=== PATIENT | male | born 2000 | race African-American/Black ===

== ENCOUNTER 2022-11-29 11:22 | Observation (INO) | payer OTHER, SELFPAY ==
--- OUTSIDE RECORDS SUMMARY | 2022-11-29 11:26 | XMS REPORT | Continuity of Care Document ---
:2000 Author Organization [facility] t Address [address] [place] [address]. [address] [place] [address] Care Team Providers Name Role Phone PCP, PATIENT DOES NOT HAVE A Primary Care Physician Unavailhernando Hartman MD, Not In System Attending Clinician Unavailable WILEY LOPEZ Attending Clinician Unavailable Wiley Lopez MD Attending Clinician Milton Romero Attending Clinician MILTON DUPREE Attending Clinician Unavailable TAMIE CAMACHO Attending Clinician Unavailable JOIE GUTIERREZ Attending Clinician Unavailable COSTA SALAS Attending Clinician Unavailable WILEY LOPEZ Admitting Clinician Unavailable MILTON DUPREE Admitting Clinician Unavailable COSTA SALAS Admitting Clinician Unavailable Payers Payer Name Policy Type Policy Number Effective Date Expiration Date S adrianaramona [facility] [id number] 2021 00:00:00 MEDICAID PENDING PENDING 2020 00:00:00 Problems Condition Condition Condition Status Onset Resolution Last Treating Co mments Source Name Details Category Date Date Treatment Clinician Date No known No known Disease Unive rs active active ity of problems problems [facility] Allergies, Adverse Reactions, Alerts Allergy Allergy Status Severity Reaction(s) Onset Inactive Treating Comm ents Source Name Type Date Date Clinician NO KNOWN Drug Active Univers ALLERGIE Class ity of [facility] Social History Social Habit Start Date Stop Date Quantity Comments Source Exposure to Not sure [facility] [place] SARS-CoV-2 (event) Medica l Branch Gender identity [facility] Sexual orientation [facility] History of Social 2020-07-08 2020-07-08 [facility] function 00:00:00 00:00:00 Sex Assigned At [birth year] Met [facility] 00:00:00 00:00:00 Smoking Status Start Date Stop Date Source Tobacco smoking consumption unknown [facility] Medications Ordered Filled Start Stop Current Ordering Indication Dosage Frequency Signature Comments Components Source Medication Medication Date Date Medication? Clinician (SIG) Name Name oseltamivir Yes [id number] 75mg Take 1 Univers (TAMIFLU) 3-22 capsule by ity of 75 mg 00:00: mouth 2 [place] capsule 00 (two) Medical times Branch daily. ibuprofen Yes [id number] 800mg Take 1 Univers 800 mg 3-22 tablet by ity of tablet 00:00: mouth [place] 00 every 8 Medical (eight) Branch hours as needed for Pain (scale 4-6) or Temp > 38.5 C. ondansetron 2020- No 4mg 4 mg, Slow Univers (ZOFRAN 8 08-30 IV Push, ity of (PF)) 06:15: 05:11 ONCE, 1 [place] injection 4 00 :00 dose, Mon Med ical mg 11/17/20 at Branch 0115, KENYETTA NaCl 0.9% 2020- No 1000mL at 999 Uni vers (NS) bolus 8 08-30 mL/hr, ity of infusion 06:15: 06:00 1,000 mL, Darius as 1,000 mL 00 :00 IV Medical Piggyback, Branch ONCE, 1 dose, 11/17/20 at 0115, STAT methylPREDN Yes [id number] Take by Univers ISolone 2-20 mouth ity of (MEDROL, 00:00: SEE-INSTRU Darius as RICARDO,) 4 mg 00 CTIONS. Medica l tablets follow Branch package directions naproxen 0 Yes [id number] 550mg Take 1 U nivers sodium 2-20 tablet by ity of (ANAPROX 00:00: mouth 2 [place] DS) 550 mg 00 (two) Medical tablet times Branch daily with meals. methylPREDN 2020-0 Yes [id number] Take by Univers ISolone 2-20 mouth ity of (MEDROL, 00:00: SEE-INSTRU Darius as RICARDO,) 4 mg 00 CTIONS. Medica l tablets follow Branch package directions naproxen 2019-0 Yes [id number] 550mg Take 1 U nivers sodium 2-20 tablet by ity of (ANAPROX 00:00: mouth 2 [place] DS) 550 mg 00 (two) Medical tablet times Branch daily with meals. Vital Signs Vital Name Observation Time Observation Value Comments Source Body temperature 2021-06-09 07:54:00 37.83 Augustina [facility] Respiratory rate 2021-06-09 07:00:00 22 /min [facility] Oxygen saturation in 2021-06-09 07:00:00 98 /min University of Arterial blood by [facility] Pulse oximetry Jeddo Systolic blood 2021-06-09 07:00:00 134 mm[Hg] Univer sity [facility] Diastolic blood 2021-06-09 07:00:00 44 mm[facility]Hg] [facility] 2021-06-09 07:00:00 81 /min [facility] Body height 2021-06-09 04:53:00 188 cm [facility] Body weight 2021-06-09 04:53:00 122.471 kg [facility] BMI 2021-06-09 04:53:00 34.67 kg/m2 [facility] Systolic blood 2020-11-17 07:30:00 118 mm[Hg] Univer sity [facility] Diastolic blood 2020-11-17 07:30:00 66 mm[Hg] [facility] 2020-11-17 07:30:00 73 /min [facility] Respiratory rate 2020-11-17 07:30:00 18 /min [facility] Oxygen saturation in 2020-11-17 07:30:00 99 /min [place] of Arterial blood by [facility] Pulse oximetry Branch Body weight 2020-11-17 04:47:00 115.667 kg [facility] BMI 2020-11-17 04:47:00 32.74 kg/m2 [facility] Procedures Procedure Date / Time Performing Clinician Source Performed TROPONIN I 2021-06-09 06:51:00 Wiley Lopez [facility] RAPID INFLUENZA A/B 2021-06-09 06:40:00 Wiley Lopez [facility] COVID-19 (ID NOW RAPID 2021-06-09 06:40:00 Wiley Lopez [facility] TESTING) [facility] XR CHEST 1 VW 2021-06-09 05:17:00 Wiley Lopez [facility] LIPASE 2021-06-09 05:07:00 Wiley Lopez [facility] TROPONIN I 2021-06-09 05:07:00 Wiley Lopez [facility] COMP. METABOLIC PANEL 2021-06-09 05:07:00 Wiley Lopez [facility] ([id number]) [facility] CBC WITH DIFF 2021-06-09 05:07:00 Wiley Lopez [facility] PROTHROMBIN TIME / INR 2021-06-09 05:07:00 Wiley Lopez [facility] ACTIVATED PARTIAL 2021-06-09 05:07:00 Wiley Lopez [facility] THRMPLAS [facility] URINALYSIS 2020-11-17 06:55:00 Milton Dupree [facility] URINE DRUG (IMMUNOASSAY) 2020-11-17 06:55:00 [facility] SCREEN W/O REFLEX XR CHEST 1 VW 2020-11-17 06:08:15 Milton Dupree [facility] POCT GLUCOSE (AUTOMATED) 2020-11-17 05:10:[address] [facility] TROPONIN I 2020-11-17 05:06:00 Milton Dupree [facility] COMP. METABOLIC PANEL 2020-11-17 05:06:00 Milton Dupree [facility] ([id number]) Medical Branch ETHANOL 2020-11-17 05:06:00 Milton Dupree [facility] CBC WITH DIFF 2020-11-17 05:06:00 Milton Dupree [facility] Plan of Care Planned Activity Planned Date Details Comments Source Future Scheduled 2022-11-25 COVID-19 [facility]INE [facility] Test 13:58:54 (#1) [code = COVID-19 VACCINE (#1)] Future Scheduled 2022-11-25 [facility] 13:58:54 screening (procedure) [code = 524032783] Future Scheduled 2022-11-25 INFLUENZA [facility]ACCINE [facility] Test 13:58:54 (#1) [code = INFLUENZA VACCINE (#1)] Encounters Start End Encounter Admission Attending Care Care Encounter Source Date/Time Date/Time Type Type Clinicians Facility Department ID 2022-05-07 2022-05-07 Transcribe Provider, [id number] [facility] 00:00:00 00:00:00 [place] [address].[address] [facility] 3.430.2.7 Hospit a .3.471313 l .8 2021-06-08 2021-06-09 Emergency X [facility] ERT [id number] Univers 23:50:00 [facility]57[facility] 2021-06-08 2021-06-09 Emergency [facility] [id number] Univers 23:50:00 02:57:00 Wiley BOBO 350.1.13.10 ity of [facility] 4.2.7.2.686 [facility] [id number] [address] 2020-11-16 2020-11-17 Emergency [facility] [id number] Univers 23:44:00 03:10:00 Milton Bobo 350.1.13.10 i ty of [place] 4.2.7.2.686 [facility] [id number] [place] [address] Branch 2020-11-16 2020-11-17 Emergency X LEIA, [facility] ERT [id number] Univers 23:44:00 03:10:00 MILTON [facility] 2020-10-17 2020-10-17 Emergency X DOUG [facility] ERT [id number] Univers 03:03:00 03:03:00 TAMIE [facility] 2020-09-19 2020-09-19 Emergency X [facility] ERT [id number] Univers 09:11:00 09:11:00 [facility] 2020-07-07 2020-07-08 Emergency MATT, [facility] 064 [id number] [place] 00:00:00 00:00:00 JOIE Jade [facility] 2019-05-10 2019-05-10 Emergency X SINGER [facility] ERT [id number] Univers 02:56:17 04:02:00 COSTA [facility] Results Test Description Test Time Test Comments Results Result Comments Source RAPID INFLUENZA A/B 2021-06-09 07:42:13 Test Item Value Reference Range Interpretation Comme nts Rapid Influenza A (test code = Positive Negative A 82515-2) Rapid Influenza B (test code = Negative Negative 24124-9) MARVIN (test code = MARVIN) ID NOW Influenza A & B 2 is an automated multiplex assay that utilizes isothermal nucleic acid amplification technology for the differential and qualitative detection of influenza A and influenza B viral nucleic acids. ?ID Now Influenza A & B 2 performance depends on viral RNA load and may not correlate with cell culture performed on the same specimen. ?A positive result is indicative ?of presence of Influenza A and/or B viral RNA. ?A negative (Not Detected) result does not ?preclude influenza virus infection and should not be used as the sole basis for diagnosis, treatment or other patient management decisions. ?In patients with clinical symptoms, negative results should be treated as presumptive negative. ?Invalid: ?Please collect a new specimen for repeat patient testing if clinically indicated. Lab Interpretation (test code = Abnormal 40509-0) [facility] RAPID TESTING[facility]2021-06-09 07:41:58 Test Item Value Reference Range Interpretation Comments SARS-CoV-2 Rapid ID NOW Not Detected Not Detected (test code = 62722-3) MARVIN (test code = MARVIN) ID NOW COVID-19 Assay is an isothermal nucleic acid amplification test intended for the qualitative detection of nucleic acid from SARS-CoV-2 viral RNA in nasopharyngeal (BUSINESS ACCOUNT MANAGER) specimens. It is used under Emergency Use Authorization (EUA) by FDA. The limit of detection (LOD) of the assay is 125 Genome Equivalents/mL. Please note that a new specimen is requested for testing, if clinically indicated, on tests performed past validated specimen stability time. A positive result is indicative of the presence of SARS-CoV-2 RNA. ?Clinical correlation with patient history and other diagnostic information is necessary to determine patient infection status. A negative (Not Detected) result does not preclude SARS-CoV-2 infection. In patients with a high suspicion of SARS-CoV-2 infection, negative results should be treated as presumptive negative and a new specimen should be tested with alternative nucleic acid amplification molecular test. Invalid: Please collect a new specimen for repeat patient testing if clinically indicated. Lab Interpretation Normal (test code = 66202-0) [facility] [id number] 07:11:05 Test Item Value Reference Interpretation Comments Range TROPONIN I (test <0.012 See_Comment [Automated code = 9819112627) message] The system which generated this result transmitted reference range : <=0.034 ng/mL. The reference range was not used to interpret this result as normal/abnormal . MARVIN (test code = Reference (Normal) MARVIN) Range (defined by the 99th percentile reference limit): <= 0.034 ng/mL Note: Cardiac troponin begins to rise 3-4 hours after the onset of ischemia. Repeat in 4-6 hours if the sample was drawn within 3-4 hours of the onset of the symptom and found normal. Diagnosis of myocardial injury is made with acute changes in cTn concentrations with at least one serial sample above the 99th percentile upper reference limit (URL), taken together with the patient's clinical presentation. Biotin has been reported to cause a negative bias, interpret results relative to patient's use of biotin. Lab Interpretation Normal (test code = 77463-6) [facility] [id number] 05:46:35 Test Item Value Reference Interpretation Comments Range TROPONIN I (test <0.012 See_Comment [Automated code = 2379085430) message] The system which generated this result transmitted reference range : <=0.034 ng/mL. The reference range was not used to interpret this result as normal/abnormal . MARVIN (test code = Reference (Normal) MARVIN) Range (defined by the 99th percentile reference limit): <= 0.034 ng/mL Note: Cardiac troponin begins to rise 3-4 hours after the onset of ischemia. Repeat in 4-6 hours if the sample was drawn within 3-4 hours of the onset of the symptom and found normal. Diagnosis of myocardial injury is made with acute changes in cTn concentrations with at least one serial sample above the 99th percentile upper reference limit (URL), taken together with the patient's clinical presentation. Biotin has been reported to cause a negative bias, interpret results relative to patient's use of biotin. Lab Interpretation Normal (test code = 09338-8) [facility]. METABOLIC PANEL (11458)2021-06-09 05:35:57 Test Item Value Reference Range Interpretation Comments NA (test code = 140 mmol/L 135-145 7933447486) K (test code = 4.4 mmol/L 3.5-5.0 6175982610) CL (test code = 102 mmol/L 98-108 8703209027) CO2 TOTAL (test code = 25 mmol/L 23-31 4426606310) AGAP (test code = 2-16 4580505243) BUN (test code = 13 mg/dL 7-23 4383671562) GLUCOSE (test code = 99 mg/dL 70-110 9967080192) CREATININE (test code = 1.12 mg/dL 0.60-1.25 6303073888) TOTAL BILI (test code = 0.6 mg/dL 0.1-1.4 0875048656) CALCIUM (test code = 9.3 mg/dL 8.6-10.6 6843705859) T PROTEIN (test code = 8.4 g/dL 6.3-8.2 H 3746016831) ALBUMIN (test code = 4.9 g/dL 3.5-5.0 3722642680) ALK PHOS (test code = 75 U/L 34-122 0908776715) ALTv (test code = 48 U/L 5-50 1742-6) AST(SGOT) (test code = 49 U/L 13-40 H 0142855333) eGFR (test code = mL/min/1.73m2 4825200665) MARVIN (test code = MARVIN) Association of Glomerular Filtration Rate (GFR) and Staging of Kidney Disease* + --+ --+ ------+| GFR (mL/min/1.73 m2) ?| With Kidney Damage ?| ?Without Kidney Damage+ --------+ --------+ +| ?>90 ?| ?Stage one ?| ? Normal ?+ ---+ ---+ -------+| ?60-89 ?| ?Stage two ?| ? Decreased GFR ? + --+ --+ ------+| ?30-59 ?| ?Stage three ?| ? Stage three ? + --+ --+ ------+| ?15-29 ?| ?Stage four ? | ? Stage four ?+ ---+ ---+ -------+| ?<15 (or dialysis) ? ?| ?Stage five ? | ? Stage five ?+ ---+ ---+ -------+ *Each stage assumes the associated GFR level has been in effect for at least three months. ?Stages 1 to 5, with or without kidney disease, indicate chronic kidney disease. Notes: Determination of stages one and two (with eGFR >59mL/min/1.73 m2) requires estimation of kidney damage for at least three months as defined by structural or functional abnormalities of the kidney, manifested by either:Pathological abnormalities or Markers of kidney damage (including abnormalities in the composition of the blood or urine or abnormalities in imaging tests). Lab Interpretation Abnormal (test code = 77337-3) [facility] [id number] 05:35:16 Test Item Value Reference Range Interpretation Comments LIPASE (test code = 5309152875) 48 U/L 0-220 Lab Interpretation (test code = Normal 42023-6) [facility]22[facility]-22 05:33:35 Test Item Value Reference Range Interpretation Comments APTT Patient (test See_Comment [Automat ed code = 3173-2) message] The system which generated this result transmitted reference range : 23 - 38 Seconds . The reference range was not used to interpr et this result as normal/abnormal . MARVIN (test code = MARVIN) The [facility] patient population mean normal value for aPTT is 30 seconds. Lab Interpretation Normal (test code = 74844-4) [facility] / [id number] 05:31:34 Test Item Value Reference Range Interpretation Comments PROTIME PATIENT (test See_Comment [Auto mated message] code = 5964-2) The system wh ich generated this result transmitted ref erence range: 12.0 - 1 4.7 Seconds. The re ference range was not u sed to interpret this result as normal/abnor mal. INR (test code = 6301-6) Nor mal INR <1.1; Warfarin Therap eutic range 2.0 to 3. 0 or 2.5 to 3.5, dep ending upon the indica tions. Lab Interpretation (test Normal code = 35979-5) [facility] [id number] 05:23:16 Test Item Value Reference Range Interpretation Comments WBC (test code = See_Comment [Automated 0390-2) message] The sy stem which generated this result transmitted reference range : 4.20 - 10.70 10*3/?L. The reference range was not used to interpret this result as normal/abnormal . RBC (test code = See_Comment [Automated 389-8) message] The sy stem which generated this result transmitted reference range : 4.26 - 5.52 10*6/?L. The reference range was not used to interpret this result as normal/abnormal . HGB (test code = 13.9 g/dL 12.2-16.4 718-7) HCT (test code = 42.4 % 38.4-49.3 4544-3) MCV (test code = 86.2 fL 81.7-95.6 787-2) MCH (test code = 28.3 pg 26.1-32.7 785-6) MCHC (test code = 32.8 g/dL 31.2-35.0 786-4) RDW-SD (test code = 44.9 fL 38.5-51.6 08689-6) RDW-CV (test code = 14.3 % 12.1-15.4 788-0) PLT (test code = See_Comment [Automated 777-3) message] The sy stem which generated this result transmitted reference range : 150 - 328 10*3/ ?L. The reference r shirin was not used to interpret this result as normal/abnormal . MPV (test code = 11.7 fL 9.8-13.0 96979-1) NRBC/100 WBC (test See_Comment [Automat ed code = 3815482350) message] The system which generated this result transmitted reference range : 0.0 - 10.0 /100 WBCs. The refer ence range was not u sed to interpret th is result as normal/abnormal . NRBC x10^3 (test code <0.01 See_Comment [Auto mated = 0487134143) message] The s ystem which generated this result transmitted reference range : 10*3/?L. The reference range was not used to interpret this result as normal/abnormal . GRAN MAT (NEUT) % 70.7 % (test code = 770-8) IMM GRAN % (test code 1.60 % = 0826717069) LYMPH % (test code = 15.3 % 736-9) MONO % (test code = 10.6 % 5905-5) EOS % (test code = 1.5 % 713-8) BASO % (test code = 0.3 % 706-2) GRAN MAT x10^3(ANC) 4.35 10*3/uL 1.99-6.95 (test code = 7505742899) IMM GRAN x10^3 (test 0.10 10*3/uL 0.00-0.06 H code = 3455697468) LYMPH x10^3 (test code 0.94 10*3/uL 1.09-3.23 L = 731-0) MONO x10^3 (test code 0.65 10*3/uL 0.36-1.02 = 742-7) EOS x10^3 (test code = 0.09 10*3/uL 0.06-0.53 711-2) BASO x10^3 (test code <0.03 0.01-0.09 = 704-7) Lab Interpretation Abnormal (test code = 80518-2) [facility]IM[facility]ASSA[facility] - COMPREHENSIVE DRUG SCREEN W/O [id number] 07:40:45 Test Item Value Reference Range Interpretation Comments AMPHET (test code = 6269016468) Negative Negative FRANCES U (test code = 7579133271) Negative Negative BENZO U (test code = 3201211343) Negative Negative Cocaine Metabolite (test code = Negative Negative 3473756215) METHADONE (test code = 6177067588) Negative Negative OPIATES (test code = 7190625893) Negative Negative PCP (test code = 9756045622) Negative Negative THC (test code = 4545925537) Negative Negative MARVIN (test code = MARVIN) Lab Interpretation (test code = Normal 41026-5) [facility]2021[facility]08[facility]30 07:28:35 Test Item Value Reference Range Interpretation Comments APPEARANCE (test code = Clear Clear 2716246133) COLOR (test code = Yellow Yellow 2208583372) PH (test code = 4.8-8.0 2255988365) SP GRAVITY (test code = 1.003-1.030 0233871478) GLU U QUAL (test code = Normal Normal 9198922425) BLOOD (test code = Negative Negative 2808840438) KETONES (test code = Negative Negative 2202551889) PROTEIN (test code = Negative Negative 2887-8) UROBILIN (test code = Normal Normal 7890958767) BILIRUBIN (test code = Negative Negative 1604935747) NITRITE (test code = Negative Negative 1792803719) LEUK COLLINS (test code = 25/uL Negative A 2513342206) RBC/HPF (test code = See_Comment [Autom ated message] 3459604505) The system [employer] generated this result transmitted ref erence range: 0 - 3 HP F. The reference range was not used to int erpret this result as normal/abnormal . WBC/HPF (test code = See_Comment H [Autom ated message] 9904170508) The system [employer] generated this result transmitted ref erence range: 0 - 5 HP F. The reference range was not used to int erpret this result as normal/abnormal . BACTERIA (test code = Negative Negative 3929810487) MUCOUS (test code = Slight Negative LPF A 9670339707) Lab Interpretation (test Abnormal code = 01883-9) [facility] [id number] 05:49:31 Test Item Value Reference Range Interpretation Comments TROPONIN I (test code = <0.012 See_Comment [Au tomated message] 3563792445) The system [employer] generated this result transmitted ref erence range: <=0.034 ng/mL. The reference r shirin was not used to interpret this result as normal/abnor mal. MARVIN (test code = MARVIN) Lab Interpretation (test Normal code = 37129-3) [facility] WITH [id number] 05:46:15 Test Item Value Reference Range Interpretation Comments WBC (test code = See_Comment [Automated 2890-2) message] The sy stem which generated this result transmitted reference range : 4.20 - 10.70 10*3/?L. The reference range was not used to interpret this result as normal/abnormal . RBC (test code = See_Comment [Automated 369-8) message] The sy stem which generated this result transmitted reference range : 4.26 - 5.52 10*6/?L. The reference range was not used to interpret this result as normal/abnormal . HGB (test code = 13.4 g/dL 12.2-16.4 718-7) HCT (test code = 40.0 % 38.4-49.3 4544-3) MCV (test code = 84.6 fL 81.7-95.6 787-2) MCH (test code = 28.3 pg 26.1-32.7 785-6) MCHC (test code = 33.5 g/dL 31.2-35.0 786-4) RDW-SD (test code = 40.1 fL 38.5-51.6 59387-2) RDW-CV (test code = 12.9 % 12.1-15.4 788-0) PLT (test code = See_Comment [Automated 777-3) message] The sy stem which generated this result transmitted reference range : 150 - 328 10*3/ ?L. The reference r shirin was not used to interpret this result as normal/abnormal . MPV (test code = 11.5 fL 9.8-13.0 01132-0) NRBC/100 WBC (test See_Comment [Automat ed code = 5206765801) message] The system which generated this result transmitted reference range : 0.0 - 10.0 /100 WBCs. The refer ence range was not u sed to interpret th is result as normal/abnormal . NRBC x10^3 (test code <0.01 See_Comment [Auto mated = 2086731661) message] The s ystem which generated this result transmitted reference range : 10*3/?L. The reference range was not used to interpret this result as normal/abnormal . GRAN MAT (NEUT) % 32.8 % (test code = 770-8) IMM GRAN % (test code 1.10 % = 6998481247) LYMPH % (test code = 57.3 % 736-9) MONO % (test code = 6.4 % 5905-5) EOS % (test code = 1.8 % 713-8) BASO % (test code = 0.6 % 706-2) GRAN MAT x10^3(ANC) 2.89 10*3/uL 1.99-6.95 (test code = 2817096930) IMM GRAN x10^3 (test 0.10 10*3/uL 0.00-0.06 H code = 3978872857) LYMPH x10^3 (test code 5.05 10*3/uL 1.09-3.23 H = 731-0) MONO x10^3 (test code 0.56 10*3/uL 0.36-1.02 = 742-7) EOS x10^3 (test code = 0.16 10*3/uL 0.06-0.53 711-2) BASO x10^3 (test code 0.05 10*3/uL 0.01-0.09 = 704-7) Lab Interpretation Abnormal (test code = 32431-0) [facility]38:52 Test Item Value Reference Range Interpretation Comments ALCOHOL (test code = 7524013579) 144 mg/dL MARVIN (test code = MARVIN) [facility] METABOLIC PANEL (49444)2020-11-17 05:38:32 Test Item Value Reference Range Interpretation Comments NA (test code = 8263449132) 143 mmol/L 135-145 K (test code = 4685289073) 3.3 mmol/L 3.5-5.0 L CL (test code = 1278577613) 108 mmol/L 98-108 CO2 TOTAL (test code = 4842794036) 19 mmol/L 23-31 L AGAP (test code = 1500364565) 2-16 BUN (test code = 7941000687) 11 mg/dL 7-23 GLUCOSE (test code = 8732808413) 125 mg/dL 70-110 H CREATININE (test code = 1.13 mg/dL 0.60-1.25 6723698866) TOTAL BILI (test code = 0.4 mg/dL 0.1-1.2 3043492204) CALCIUM (test code = 3429889495) 9.4 mg/dL 8.6-10.6 T PROTEIN (test code = 0304396884) 9.0 g/dL 6.3-8.2 H ALBUMIN (test code = 9276341650) 5.3 g/dL 3.5-5.0 H ALK PHOS (test code = 2481922338) 77 U/L 34-122 ALTv (test code = 1742-6) 68 U/L 5-50 H AST(SGOT) (test code = 0403241089) 55 U/L 13-40 H eGFR (test code = 7637323891) mL/min/1.73m2 MARVIN (test code = MARVIN) Lab Interpretation (test code = Abnormal 12104-7) [facility]2020-11-17 05:13:21 Test Item Value Reference Range Interpretation Comments POCT GLU (test code = 5296432953) 122 mg/dL 70-110 H Lab Interpretation (test code = Abnormal 09488-7) [facility]"
[2022-11-29 12:23] LABS: Specific Gravity 1.022 (1.005-1.030); Transitional Epithelial <5 /HPF (None Seen); Urine Bacteria <20 /HPF (<20); Urine Bilirubin NEGATIVE (Negative); Urine Blood Negative (Negative); Urine Clarity Turbid (Clear); Urine Color Light-Yellow (Yellow); Urine Glucose NEGATIVE (Negative); Urine Mucus Slight /HPF (None Seen); Urine Protein NEGATIVE (Negative); Urine Urobilinogen Normal (Normal)
[2022-11-29 12:28] LABS: Absolute Lymphocytes (CBC) 1.9 K/uL (0.7-4.9); Hematocrit 40.2 % (39.6-49.0); Lymphocytes % 20.3 % (15.3-44.8); MCV 84.8 fL (80-100); MPV 10.4 fL (7.6-11.3); Platelets 225 thou/uL (152-406); RBC Red Blood Cell Count 4.74 M/uL (4.33-5.43)
[2022-11-29 12:40] LABS: Albumin 4.3 g/dL (3.4-5.0); Bilirubin Total 0.4 mg/dL (0.2-1.0); Potassium 3.6 mEq/L (3.5-5.1); Protein, Total 8.7 g/dL (6.4-8.2)
[2022-11-29] MEDS ORDERED: NA CHLORIDE 0.9% 1,000 ML ONE (13:08)
[2022-11-29] MEDS ORDERED: KETOROLAC 30 MG/ML INJ ONE (13:08)
[2022-11-29] MEDS ORDERED: ONDANSETRON 4 MG/2 ML VIAL ONE ×2 (13:08→15:39)
--- NOTE | 2022-11-29 13:41 | RAD REPORT ---
EXAM DESCRIPTION: CT - Abdomen Pelvis W Contrast - 11/29/2022 1:11 pm CLINICAL HISTORY: ABD PAIN COMPARISON: No comparisons TECHNIQUE: Thin cut axial CT imaging of the abdomen and pelvis was performed following intravenous a dministration of 100 mL Isovue 300. Multiplanar reformats were generated and reviewed. All CT scans are performed using dose optimization technique as appropriate and may include automated exposure control or mA/KV adjustment according to patient size. FINDINGS: No suspicious findings in the lung bases. The liver shows diffuse parenchymal hypoattenuation suggesting steatosis. Spleen, adrenal glands, and pancreas show no suspicious findings. Gallbladder and biliary tree are also without suspicious findi ng. Symmetric renal function is seen with no hydronephrosis or suspicious renal mass. No dilated bowel loops. The appendix courses towards the midline and superiorly, with dilation at the tip measuring up to 1 cm in caliber, with mild adjacent fat stranding. Trace free pelvic fluid. No f ree air, fluid collections, or inflammatory stranding. No hernia, mass or bulky lymphadenopathy. The urinary bladder is without significant finding. No suspicious bony findings. IMPRESSION: Findings suggesting acute appendicitis at the tip of the appendix, as described above. T race free pelvic fluid. Diffuse hepatic parenchymal hypoattenuation, suggesting steatosis. The findings were communicated to Dr. Palm on 11/29/2022 at 13:37 hours.
--- NOTE | 2022-11-29 13:53 | ER ---
Nurse's Notes [facility] Name: Jelani Plaza Age: 22 yrs Sex: Male : 2000 Arrival Date: 11/29/2022 Time: : Bed 10 Private MD: Diagnosis: Unspecified acute appendicitis Presentation: 11/29 11:29 Chief complaint: Patient states: abd pain that began Tuesday, denies aa5 nausea/vomiting/diarrhea. 11:29 Method Of Arrival: Ambulatory aa5 11:29 Coronavirus screen: At this time, the client does not indicate any symptoms associated aa5 with coronavirus-19. Ebola Screen: Patient denies travel to an Ebola-affected area in the 21 days before illness onset. Initial Sepsis Screen: Does the patient meet any 2 criteria? No. Patient's initial sepsis screen is negative. Does the patient have a suspected source of infection? No. Patient's initial sepsis screen is negative. Risk Assessment: Do you want to hurt yourself or someone else? Patient reports no desire to harm self or others. Onset of symptoms was November 2022. 11:29 Acuity: FARHAT 3 aa5 Historical: - Allergies: 11:29 No Known Allergies; aa5 - PMHx: 11:29 Asthma; Hypertensive disorder; "high heart rate"; aa5 - PSHx: 11:29 None; aa5 - Immunization history:: Adult Immunizations unknown. - Social history:: Smoking status: Reported history of juuling and/or vaping. Screenin:47 [facility] ED Fall Risk Assessment (Adult) History of falling in the last 3 months, ld1 including since admission No falls in past 3 months (0 pts). Abuse screen: Denies threats or abuse. Denies injuries from another. Nutritional screening: No deficits noted. Tuberculosis screening: No symptoms or risk factors identified. Assessment: 13:47 General: Appears in no apparent distress. comfortable, Behavior is calm, cooperative, ld1 appropriate for age. Pain: Complains of pain in left lower quadrant and right lower quadrant Pain does not radiate. Pain currently is 7 out of 10 on a pain scale. Quality of pain is described as throbbing. Neuro: Level of Consciousness is awake, alert, obeys commands, Oriented to person, place, time, situation. Cardiovascular: Capillary refill < 3 seconds Patient's skin is warm and dry. Respiratory: Airway is patent Respiratory effort is even, unlabored. GI: Abdomen is flat, non-distended, Bowel sounds present X 4 quads. Abd is soft and non tender. : No signs and/or symptoms were reported regarding the genitourinary system. EENT: No signs and/or symptoms were reported regarding the EENT system. Derm: No signs and/or symptoms reported regarding the dermatologic system. Musculoskeletal: No signs and/or symptoms reported regarding the musculoskeletal system. Vital Signs: 11:29 BP 138 / 75; Pulse 83; Resp 18 S; Temp 98.4(TE); Pulse Ox 100% on R/A; Weight 121.56 kg aa5 (R); Height 6 ft. 2 in. (R); 13:47 BP 140 / 76; Pulse 79; Resp 18; Pulse Ox 100% on R/A; ld1 11:29 Body Mass Index 34.41 (121.56 kg, 187.96 cm) aa5 ED Course: 11:27 Patient arrived in ED. kb 11:27 Chloe Ortez FNP-C is PHCP. kb 11:27 Ashley Palm MD is Attending Physician. kb 11:29 Arm band placed on. aa5 11:31 Triage completed. aa5 12:13 CBC with Diff Sent. bc6 12:13 CMP Sent. bc6 12:13 Lipase Sent. bc6 12:13 Urinalysis w/ reflexes Sent. bc6 12:14 Inserted saline lock: 22 gauge in left antecubital area, using aseptic technique. Blood bc6 collected. 13:13 CT Abd/Pelvis - IV Contrast Only In Process Unspecified. EDMS 13:47 Violet Daigle, RN is Primary Nurse. ld1 13:47 Patient has correct armband on for positive identification. Placed in gown. Bed in low ld1 position. Call light in reach. Side rails up X2. playground monitor on. Pulse ox on. NIBP on. Door closed. Noise minimized. Warm blanket given. 13:47 No provider procedures requiring assistance completed. ld1 13:52 Onur García is Hospitalizing Provider. kb 14:26 Patient admitted, IV remains in place. ld1 Administered Medications: 13:01 Drug: NS 0.9% IV 1000 ml Route: IV; Rate: 1 bolus; Site: left antecubital; ld1 13:01 Drug: TORadol - Ketorolac IVP 15 mg Route: IVP; Site: left antecubital; ld1 13:01 Drug: Ondansetron IVP 4 mg Route: IVP; Site: left antecubital; ld1 14:05 Drug: Piperacillin-Tazobactam IVPB 3.375 grams Route: IVPB; Infused Over: 60 mins; ld1 Site: left antecubital; Medication: 13:47 VIS not applicable for this client. ld1 Outcome: 13:52 Decision to Hospitalize by Provider. kb 14:26 Admitted to OR accompanied by nurse. ld1 14:26 Condition: stable 14:26 Instructed on the need for admit. 14:26 Patient left the ED. ld1 Signatures: Dispatcher [employer] EDChloe Stern, POST DOC FELLOWSHIP-C POST DOC FELLOWSHIP-Mallorie Ng RN RN aa5 Violet Daigle RN RN ld1 Carolann Zambrano 6
--- NOTE | 2022-11-29 13:53 | EDPHYS ---
Physician Documentation [facility] Name: Jelani Plaza Age: 22 yrs Sex: Male : 2000 Arrival Date: 11/29/2022 Time: 11:22 Bed 10 Private MD: ED Physician Ashley Palm HPI: 11/29 13:38 This 22 yrs old Black Male presents to ER via Ambulatory with complaints of Abdominal kb Pain. 11:27 Pt reports lower abd pain, nausea and vomiting that started 3 days ago. Denies fever kb and diarrhea. . 13:38 The patient presents with abdominal pain in the lower abdomen. Onset: The kb symptoms/episode began/occurred 3 day(s) ago. The symptoms do not radiate. Associated signs and symptoms: Pertinent positives: nausea, vomiting, Pertinent negatives: diarrhea, fever. The symptoms are described as constant. Modifying factors: The symptoms are alleviated by nothing, the symptoms are aggravated by nothing. Severity of pain: At its worst the pain was moderate in the emergency department the pain is unchanged. The patient has not experienced similar symptoms in the past. The patient has not recently seen a physician. Historical: - Allergies: 11:29 No Known Allergies; aa5 - PMHx: 11:29 Asthma; Hypertensive disorder; "high heart rate"; aa5 - PSHx: 11:29 None; aa5 - Immunization history:: Adult Immunizations unknown. - Social history:: Smoking status: Reported history of juuling and/or vaping. ROS: 13:38 Constitutional: Negative for fever, chills, and weight loss. kb 13:38 Abdomen/GI: Positive for abdominal pain, nausea and vomiting, Negative for diarrhea, constipation. 13:38 All other systems are negative. Exam: 13:38 Constitutional: This is a well developed, well nourished patient who is awake, alert, kb and in no acute distress. Head/Face: Normocephalic, atraumatic. ENT: Moist Mucous membranes Cardiovascular: Regular rate Respiratory: Respirations even and unlabored. No increased work of breathing. Talking in full sentences Skin: Warm, dry with normal turgor. Normal color. MS/ Extremity: Pulses equal, no cyanosis. Neurovascular intact. Full, normal range of motion. Neuro: Awake and alert, GCS 15, oriented to person, place, time, and situation. Moves all extremities. Normal gait. 13:38 Abdomen/GI: Inspection: abdomen appears normal, Bowel sounds: normal, Palpation: soft, in all quadrants, moderate abdominal tenderness, in the right lower quadrant and left lower quadrant. Vital Signs: 11:29 BP 138 / 75; Pulse 83; Resp 18 S; Temp 98.4(TE); Pulse Ox 100% on R/A; Weight 121.56 kg aa5 (R); Height 6 ft. 2 in. (R); 13:47 BP 140 / 76; Pulse 79; Resp 18; Pulse Ox 100% on R/A; ld1 11:29 Body Mass Index 34.41 (121.56 kg, 187.96 cm) aa5 MDM: 11:28 Patient medically screened. kb 13:38 Differential diagnosis: appendicitis, diverticulitis, non-specific abd pain, kb Ureterolithiasis, urinary tract infection. Data reviewed: vital signs, nurses notes. Consideration of Admission/Observation Patient was admitted/placed on observation. Escalation of care including admission/observation considered. Counseling: I had a detailed discussion with the patient and/or guardian regarding the historical points, exam findings, and any diagnostic results supporting the discharge/admit diagnosis, lab results, radiology results, the need for further work-up and treatment in the hospital. 13:50 Management of patient was discussed with the following: Hospitalist: Geno accepts pt kb for admission under Dr García. Offc Spec: Emile accepts pt for consult, will take to surgery at 1500 today. 11/29 11:32 Order name: CBC with Diff; Complete Time: 12:33 kb 11/29 11:32 Order name: CMP; Complete Time: 12:40 kb 11/29 11:32 Order name: Lipase; Complete Time: 12:40 kb 11/29 11:32 Order name: Urinalysis w/ reflexes; Complete Time: 12:31 kb 11/29 12:29 Order name: Urine Culture EDMS 11/29 11:32 Order name: CT Abd/Pelvis - IV Contrast Only; Complete Time: 13:42 kb 11/29 11:32 Order name: IV Saline Lock; Complete Time: 12:13 kb 11/29 11:32 Order name: Labs collected and sent; Complete Time: 12:13 kb Administered Medications: 13:01 Drug: NS 0.9% IV 1000 ml Route: IV; Rate: 1 bolus; Site: left antecubital; ld1 13:01 Drug: TORadol - Ketorolac IVP 15 mg Route: IVP; Site: left antecubital; ld1 13:01 Drug: Ondansetron IVP 4 mg Route: IVP; Site: left antecubital; ld1 14:05 Drug: Piperacillin-Tazobactam IVPB 3.375 grams Route: IVPB; Infused Over: 60 mins; ld1 Site: left antecubital; Disposition Summary: 11/29/22 13:52 Hospitalization Ordered Hospitalization Status: Observation kb Provider: Onur García Location: Telemetry/MedSurg (observation) kb Condition: Stable kb Problem: new kb Symptoms: are unchanged kb Bed/Room Type: Standard Room Assignment: Diagnosis - Unspecified acute appendicitis kb Forms: - Medication Reconciliation Form kb - SBAR form kb - Leadership Thank You Letter kb Signatures: Dispatcher [employer] Chloe Scott FNP-C FNP-Mallorie Ng RN RN aa5 Violet Daigle RN RN ld1
[2022-11-29] MEDS ORDERED: NA CHLORIDE 0.9% 100 ML ONE (14:10)
[2022-11-29] MEDS ORDERED: PIPERACIL/TAZO 3.375 GM VIAL IV ONE (14:10)
[2022-11-29] MEDS ORDERED: BUPIVACAINE 0.5% PF 10 ML VIAL ONE (14:10)
[2022-11-29] MEDS ORDERED: Ringers Lactate 1,000 ML IV ONE ×2 (14:40→16:20)
[2022-11-29] MEDS ORDERED: SUCCINYLCHOLINE 20 MG/ML (10 ML) IV ONE ×2 (14:51→14:54)
--- NOTE | 2022-11-29 14:53 | P.CNS ---
Date of Consult: 11/29/22 Reason for consult: Abdominal pain History of present illness: Patient is a 22-year-old gentleman who presents to the emergency room with 3-day history of increasing abdominal pain that started as a diffuse periumbilical pain now more on the right lower quadrant. Patient denies any sore throat, runny nose, cough, headache, dizziness, chest pain, fever or chills. No nausea or vomiting. No diarrhea or constipation. No blood per rectum. No dysuria or hematuria. Review of systems: Otherwise unremarkable Past medical history: Asthma, hypertension and history of tachycardia Past surgical history: Negative none Allergies: Social history: Patient states that he vapes drinks occasionally Family history: Noncontributory Vital signs: Stable, afebrile Awake, alert and oriented x3 Head and neck exam: No masses Chest: Clear Heart: S1-S2 Abdomen: Soft, nondistended, positive bowel sounds, positive Rovsing's sign with right lower quadrant tenderness with rebound no rigidity or guarding Extremity: Neurovascular intact, nontender Neuro: Nonfocal Diagnostic data: Labs and CT reviewed. Patient has a normal white count and his LFTs are slightly elevated. CT shows hepatic steatosis and evidence of distal appendiceal infection and inflammation Assessment: Acute appendicitis Plan/recommendation: Admit, n.p.o., IV fluids, IV antibiotics and to the OR for laparoscopic appendectomy possible open. Patient and family understand risks, benefits and alternatives and agreed to procedure. CC: Dr. Babb's office
[2022-11-29] MEDS ORDERED: FENTANYL CITR 100 MCG/2 ML ONE (15:00)
[2022-11-29] MEDS ORDERED: propofoL 200 MG/20 ML VIAL IV ONE (15:00)
[2022-11-29] MEDS ORDERED: MIDAZOLAM HCL 2 MG/2 ML INJ ONE (15:00)
[2022-11-29] MEDS ORDERED: ROCURONIUM 50 MG/5 ML VIAL IV ONE (15:01)
[2022-11-29] MEDS ORDERED: GLYCOPYRROLATE 0.2 MG/ML SYR ONE ×2 (15:10→15:44)
[2022-11-29] MEDS ORDERED: dexAMETHasone 10 MG/ML VIAL ONE (15:37)
[2022-11-29] MEDS ORDERED: ONDANSETRON 4 MG/2 ML VIAL IV PRN (15:50)
[2022-11-29] MEDS ORDERED: HYDROMORPHONE HCL 1 MG/ML INJ IV PRN (15:50)
--- NOTE | 2022-11-29 15:50 | P.OP ---
Date of Service: 11/29/22 Preop diagnosis: Acute appendicitis Postop diagnosis: Same Procedure performed: Laparoscopic appendectomy Surgeon: Jay Jay Baptiste MD Forging Machine Hand: Delia DE Estimated blood loss: Minimal Specimen: Appendix Findings: As above Anesthesia: General Complications: None Drains: None Fluids and blood products: Nonapplicable Disposition: Recovery room Operative note: Patient brought to the OR and placed in supine position. General anesthesia begun. Patient prepped and draped in the usual sterile fashion. Marcaine 0.5% infiltrated locally. 15 blade used to make a 1 cm supraumbilical midline incision. Subcutaneous tissue divided and bleeding controlled with cautery. Fascia identified and divided. #1 Vicryl stay sutures placed. Peritoneal cavity entered with sharp and blunt dissection. 12 mm trocar placed into the peritoneal cavity under direct vision. Pneumoperitoneum established. Under direct vision, two 5 mm trocars placed. 1 trocar placed in the suprapubic region and the other in the left lower quadrant. Laparoscopy revealed acute suppurative appendicitis in the distal half of the appendix. Mesoappendix and base of the appendix and the cecum clearly identified. Endo MAT stapling device used to divide both structures. This was done sequentially. Appendix was retrieved through the umbilicus via Endo Catch bag. Minimal bleeding from the appendiceal artery noted. Endo Clip used to control the bleeding easily. No further evidence of bleeding or bowel injury appreciated. All trocars removed under direct vision. Stay sutures tied to each other to reapproximate the fascial defect. Subcutaneous wounds irrigated and bleeding controlled cautery. 3-0 chromic used to approximate subcutaneous tissue and close skin. Sterile dressing applied and patient awakened taken to recovery room in good general condition. CC: Dr. Babb's office
[2022-11-29] MEDS ORDERED: SUGAMMADEX SODIUM 200 MG/2 ML VIAL IV ONE (15:53)
[2022-11-29] MEDS ORDERED: NEOSTIGMINE 1 MG/ML -10 ML VIAL ONE (15:55)
[2022-11-29] MEDS ORDERED: Mastisol Adhesive Liq ONE (16:01)
--- NOTE | 2022-11-29 16:02 | P.HP ---
Certification for Inpatient Patient admitted to: Observation With expected LOS: <2 Midnights Patient will require the following post-hospital care: None Practitioner: I am a practitioner with admitting privileges, knowledge of patient current condition, hospital course, and medical plan of care. Services: Services provided to patient in accordance with Admission requirements found in Title 42 Section 412.3 of the Code of Federal Regulations Patient History Date of Service: 11/29/22 Reason for admission: Abdominal pain History of Present Illness: Patient is a 22-year-old male with a past medical history significant for asthma, hypertension who presents with complaint of lower quadrants abdominal pain that has been ongoing for the past three days. Patient reported that abdominal pain was initially concentrated on the left lower quadrant, but patient felt pain on the right lower quadrant on palpation. Patient rated pain as 8/10 in severity and describe pain as aching in quality. Patient reported associated signs and symptoms of nausea and vomiting. Patient denies any other signs and symptoms. Symptoms are aggravated or relieved by nothing. Patient decided to present to the hospital due to worsening symptoms. Allergies No Known Allergies Allergy (Unverified 11/29/22 14:42) Home Medications: NK [No Home Meds] 11/29/22 - Past Medical/Surgical History -: Asthma -: Hypertension -: Anxiety disorder -: Obesity Past Surgical History: Reviewed- Non-Contributory - Family History Family History: Reviewed- Non-Contributory - Social History Smoking Status: Current every day smoker (Patient vapes) Counseled patient to stop smoking for: less than 10 minutes Smoking therapy provided: No Patient receptive to therapy: No Alcohol use: Yes CD- Drugs: No Caffeine use: Yes Place of Residence: Home Review of Systems General: Unremarkable Eyes: Unremarkable ENT: Unremarkable Respiratory: Unremarkable Cardiovascular: Unremarkable Gastrointestinal: Nausea, Vomiting, Abdominal Pain Genitourinary: Unremarkable Musculoskeletal: Unremarkable Integumentary: Unremarkable Neurological: Unremarkable Lymphatics: Unremarkable Physical Examination - Vital Signs Temperature: 98.4 F Blood Pressure: 140/76 Pulse: 79 Respirations: 18 - Physical Exam General: Alert, In no apparent distress, Oriented x3, Cooperative HEENT: Atraumatic, PERRLA, Mucous membr. moist/pink, EOMI, Sclerae nonicteric Neck: Supple, 2+ carotid pulse no bruit, No LAD, Without JVD or thyroid abnormality Respiratory: Clear to auscultation bilaterally, Normal air movement Cardiovascular: No edema, Regular rate/rhythm, Normal S1 S2 Capillary refill: <2 Seconds Gastrointestinal: Normal bowel sounds, Tenderness Musculoskeletal: No clubbing, No swelling, No contractures, No tenderness Integumentary: No rashes Neurological: Normal gait, Normal speech, Normal strength at 5/5 x4 extr, Normal tone, Normal affect Lymphatics: No axilla or inguinal lymphadenopathy - Studies Laboratory Data (last 24 hrs) 11/29/22 11/29/22 12:09 12:09 WBC 9.40 Hgb 13.7 Hct 40.2 Plt Count 225 Sodium 137 Potassium 3.6 BUN 9 Creatinine 1.05 Glucose 95 Total Bilirubin 0.4 AST 89 H ALT 217 H Alkaline Phosphatase 74 Lipase 24 Assessment and Plan - Plan --Acute appendicitis. Noted on imaging. Surgeon consulted. Plans to take patient to the OR for an appendectomy. Continue antibiotics and IV hydration. Further management per surgeon. --Acute pain. We will manage pain with current pain medication regimen. --Asthma. Stable. Continual home medication. --Hypertension. Poorly controlled. Will manage BP with hydralazine PRN, --Class 1 obesity. Likely secondary to excess calories intake. Patient counselled on weight reduction, diet and assess therapy. --Nausea and vomiting. Antiemetics on board. Continue supportive care. --DVT prophylaxis with SCDS. Discharge Plan: Home Plan to discharge in: 48 Hours - Advance Directives Does patient have a Living Will: No Does patient have a Durable POA for Healthcare: No - Code Status/Comfort Care Code Status Assessed: Yes Physician Review: Patient Assessed, Agree with Above Assessment and Plan Critical Care: No
[2022-11-29] MEDS ORDERED: ALBUTEROL 2.5 MG/3 ML NEB SOL ONE (16:18)
[2022-11-29] MEDS ORDERED: HYDROMORPHONE HCL 1 MG/ML INJ ONE (16:24)
[2022-11-29] MEDS ORDERED: MEPERIDINE HCL 25 MG/ML SYR ONE (16:25)
[2022-11-29 16:42] LABS: Magnesium 1.7 mg/dL (1.6-2.4)
[2022-11-29] MEDS: D5 0.45 NS 1,000 ML IV SCH (17:55)
[2022-11-29] MEDS: HYDROCODONE/APAP 7.5/325 MG TAB PO PRN ×2 (17:56→23:17)
[2022-11-29] MEDS: PIPER TAZO 3.375 GM in NA CHLORIDE 0.9% 100 ML IV SCH (17:57)
[2022-11-29 17:59] VITALS: BMI 34.4
[2022-11-30] MEDS: D5 0.45 NS 1,000 ML IV SCH (02:00)
[2022-11-30 04:35] LABS: Absolute Lymphocytes (CBC) 1.2 K/uL (0.7-4.9); Hematocrit 36.4 % (39.6-49.0); Lymphocytes % 9.1 % (15.3-44.8); MCV 85.1 fL (80-100); MPV 10.4 fL (7.6-11.3); Platelets 201 thou/uL (152-406); RBC Red Blood Cell Count 4.28 M/uL (4.33-5.43)
[2022-11-30] MEDS ORDERED: HYDRALAZINE HCL 20 MG/ML VIAL IV PRN (04:45)
[2022-11-30] MEDS: HYDROCODONE/APAP 7.5/325 MG TAB PO PRN (04:50)
[2022-11-30] MEDS: PIPER TAZO 3.375 GM in NA CHLORIDE 0.9% 100 ML IV SCH ×2 (04:51→08:25)
[2022-11-30 05:16] LABS: Blood Morphology Comment NOT SEEN (NOT SEEN); Platelet Estimate ADEQ
--- NOTE | 2022-11-30 11:07 | PN ---
Date of Progress Note: 11/30/2022 Subjective: The patient is awake, alert. No complaint. Objective: Vital Signs: Stable, afebrile. Abdomen: Benign. Laboratory Data: White count is 13,000, with a left shift. Assessment: Status post laparoscopic appendectomy. Recommendations: We will continue IV antibiotics until the next dose and then sent him home on oral antibiotics. The patient clinically is doing very well. Patient can follow up with me in 1 week. D ischarge instructions given. SOY/MICHEAL Voice ID: [id number] Report ID: [id number]
--- NOTE | 2022-11-30 11:10 | P.DS ---
Admission Date: 11/29/22 Discharge Date: 11/30/22 Disposition: ROUTINE DISCHARGE Discharge Condition: GOOD Reason for Admission: Abdominal pain Consultations: General Surgery - Dr. Baptiste Brief History of Present Illness: 22yo M, PMH: asthma, hypertension Patient presents with complaint of lower quadrants abdominal pain that has been ongoing for the past three days. Patient reported that abdominal pain was initially concentrated on the left lower quadrant, but patient felt pain on the right lower quadrant on palpation. Patient rated pain as 8/10 in severity and describe pain as aching in quality. Patient reported associated signs and symptoms of nausea and vomiting. Patient denies any other signs and symptoms. Symptoms are aggravated or relieved by nothing. Patient decided to present to the hospital due to worsening symptoms. Hospital Course: Problem List: Acute Appendicitis, now s/p Laparoscopic appendectomy 11/29 Asthma Hypertension Patient presented with lower abdominal pain and found to have acute appendicitis first noted on CT. General surgery was consulted. Patient underwent successful laparoscopic appendectomy on 11/[address] Baptiste. Patient was given Zosyn post operatively to treat for possible infection. Patient is to complete course of PO Augmentin on discharge. Patient was feeling better, tolerating food without issues, abdominal pain improved, voiding without issues, and deemed stable for discharge home. Medications: New: Augmentin Freeman 7.5 Follow up: PCP 3-[address] Baptiste in 1 week Physical Exam: GEN: Alert, oriented, NAD HEENT: Normal conjunctiva, sclera anicteric CV: Regular rate and rhythm, no edema Pulm: Nonlabored respirations on room air ABD: Soft, nondistended, Dressing in place c/d/i, mild discomfort on palpation of RLQ Vital Signs/Physical Exam: Temp Pulse Resp BP Pulse Ox 97.6 F 54 14 102/53 L 97 11/30/22 08:00 11/30/22 08:00 11/30/22 08:00 11/30/22 08:00 11/30/22 08:00 Laboratory Data at Discharge: WBC 13.00 thou/uL (4.3-10.9) H 11/30/22 04:02 Hgb 12.4 g/dL (13.6-17.9) L D 11/30/22 04:02 Hct 36.4 % (39.6-49.0) L 11/30/22 04:02 Plt Count 201 thou/uL (152-406) 11/30/22 04:02 Sodium 137 mEq/L (136-145) 11/29/22 12:09 Potassium 3.6 mEq/L (3.5-5.1) 11/29/22 12:09 BUN 9 mg/dL (7-18) 11/29/22 12:09 Creatinine 1.05 mg/dL (0.70-1.30) 11/29/22 12:09 Glucose 95 mg/dL (74-106) 11/29/22 12:09 Phosphorus 2.0 mg/dL (2.5-4.9) L 11/29/22 12:09 Magnesium 1.7 mg/dL (1.6-2.4) 11/29/22 12:09 Total Bilirubin 0.4 mg/dL (0.2-1.0) 11/29/22 12:09 AST 89 U/L (15-37) H 11/29/22 12:09 ALT 217 U/L (16-61) H 11/29/22 12:09 Alkaline Phosphatase 74 U/L (45-117) 11/29/22 12:09 Lipase 24 U/L (13-75) 11/29/22 12:09 Home Medications: NK [No Home Meds] 11/29/22 Physician Discharge Instructions: PROBLEM: APPENDECTOMY GOAL: Clear understanding of disease process INSTRUCTIONS: Patient presented with lower abdominal pain and found to have acute appendicitis first noted on CT. General surgery was consulted. Patient underwent successful laparoscopic appendectomy on 11/[address] Baptiste. Patient was given Zosyn post operatively to treat for possible infection. Patient is to complete course of PO Augmentin on discharge. Patient was feeling better, tolerating food without issues, abdominal pain improved, voiding without issues, and deemed stable for discharge home. Medications: New: Augmentin Freeman 7.5 Follow up: PCP 3-[address] Baptiste in [address] Baptiste: Remove outer dressing in a.m. and shower Keep Steri-Strips on at all times Incentive spirometry as instructed No heavy lifting or strenuous exercise Follow-up in Dr. Baptiste's office 1 week, call for appointment Freeman 7.5 and Augmentin called into patient's pharmacy Resume home meds and diet Diet: Regular Activity: No lifting more than 10 lbs Diet: Regular Activity: No lifting more than 10 lbs Followup: OOT,OOT [Primary Care Provider] - Jay Jay Baptiste MD [ACTIVE - CAN ADMIT] - 1 Week Time spent managing pt's care (in minutes): 45
[2022-11-30 12:08] VITALS: BP 126/58; TEMP 98.1
[2022-11-30 12:11] VITALS: O2SAT 97
== END 2022-11-30 11:50 | disposition home or self-care (01) ==
LOC: ER 11:22 → 4TH 15:52
PROVIDERS: ADMIT Internal Medicine; ATTEND Hospitalist
PROC: 0DTJ4ZZ Resection of Appendix, Percutaneous Endoscopic Approach (ICD-10-PCS; principal; 2022-11-29 15:00)
DX: K35.80 Unspecified acute appendicitis (principal); R11.2 Nausea with vomiting, unspecified; I10 Essential (primary) hypertension; F17.290 Nicotine dependence, other tobacco product, uncomplicated; F41.9 Anxiety disorder, unspecified; E66.9 Obesity, unspecified; Z68.34 Body mass index [BMI] 34.0-34.9, adult
CPT/HCPCS: 36415; 74177; 80053; 81001; 83690; 83735; 84100; 85025; 87086; 87088; 88304; 94010; 96374; 96375; 99285; G0378; J1100; J1170; J2175; J2250; J2405; J2543; J2704; J2710; J3010; J7030; J7120; J7613; J7799; Q9967

== ENCOUNTER 2024-02-21 20:34 | Emergency (ER) | payer SELFPAY ==
--- NOTE | 2024-02-21 21:47 | ER ---
Nurse's Notes [facility] Name: Jelani Plaza Age: 23 yrs Sex: Male : 2000 Arrival Date: 02/21/2024 Time: 20:34 Bed 20 Private MD: Diagnosis: Acute Panic Attack Presentation: 02/20 20:46 Chief complaint: Patient states: i had a full blown panic attack. Coronavirus screen: bm8 Vaccine status: Patient reports receiving the 2nd dose of the covid vaccine. At this time, the client does not indicate any symptoms associated with coronavirus-19. Ebola Screen: Patient negative for fever greater than or equal to 101.5 degrees Fahrenheit, and additional compatible Ebola Virus Disease symptoms Patient denies exposure to infectious person. Patient denies travel to an Ebola-affected area in the 21 days before illness onset. No symptoms or risks identified at this time. Initial Sepsis Screen: Does the patient meet any 2 criteria? No. Patient's initial sepsis screen is negative. Does the patient have a suspected source of infection? No. Patient's initial sepsis screen is negative. Risk Assessment: Do you want to hurt yourself or someone else? Patient reports no desire to harm self or others. Onset of symptoms was February 21, 2024 at 20:00. Care prior to arrival: Medication(s) given: Ativan 2mg IM. 20:46 Method Of Arrival: EMS: [facility] bm8 20:46 Acuity: FARHAT 2 bm8 Triage Assessment: 20:48 General: Appears in no apparent distress. comfortable, Behavior is calm, cooperative, bm8 appropriate for age. Pain: Denies pain. EENT: No deficits noted. No signs and/or symptoms were reported regarding the EENT system. Neuro: No deficits noted. Level of Consciousness is awake, alert, obeys commands, Oriented to person, place, time, situation, Appropriate for age. Cardiovascular: Denies chest pain, Heart tones S1 S2 present Capillary refill < 3 seconds in bilateral fingers Patient's skin is warm and dry. Rhythm is sinus rhythm. Respiratory: Reports no respiratory issue Airway is patent Trachea midline Respiratory effort is even, unlabored, Respiratory pattern is regular, symmetrical, Breath sounds are clear bilaterally. Onset: The symptoms/episode began/occurred suddenly, the patient reports symptoms have resolved. GI: No signs and/or symptoms were reported involving the gastrointestinal system. : No signs and/or symptoms were reported regarding the genitourinary system. Derm: No signs and/or symptoms reported regarding the dermatologic system. Musculoskeletal: No signs and/or symptoms reported regarding the musculoskeletal system. Historical: - Allergies: 20:48 No Known Allergies; bm8 - Home Meds: 20:48 atenolol 50 mg Oral tablet 1 tabs daily [Active]; bm8 - PMHx: 20:48 Asthma; Hypertensive disorder; bm8 - PSHx: 20:48 Appendectomy; bm8 - Immunization history:: Adult Immunizations up to date. - Infectious Disease History:: Denies. - Social history:: Smoking status: Reported history of juuling and/or vaping. Patient/guardian denies using alcohol, street drugs. - Family history:: not pertinent. Screenin:36 [facility] ED Fall Risk Assessment (Adult) History of falling in the last 3 months, ay including since admission No falls in past 3 months (0 pts) Confusion or Disorientation No (0 pts) Intoxicated or Sedated No (0 pts) Impaired Gait No (0 pts) Mobility Assist Device Used No (0 pt) Altered Elimination No (0 pt) Score/Fall Risk Level 0 - 2 = Low Risk Oriented to surroundings, Maintained a safe environment, Educated pt \T\ family on fall prevention, incl call for assistance when getting out of bed. Abuse screen: Denies threats or abuse. Nutritional screening: No deficits noted. Tuberculosis screening: No symptoms or risk factors identified. Assessment: 21:36 General: Appears in no apparent distress. comfortable, Behavior is calm, cooperative. ay Pain: Denies pain. Neuro: No deficits noted. Level of Consciousness is awake, alert, obeys commands, Oriented to person, place, time, situation, Project Architect are equal bilaterally Gait is steady, Speech is normal. Cardiovascular: Capillary refill < 3 seconds. Cardiovascular: Denies chest pain, Respiratory: Airway is patent Respiratory effort is even, unlabored. GI: Bowel sounds present X 4 quads. : No signs and/or symptoms were reported regarding the genitourinary system. EENT: No signs and/or symptoms were reported regarding the EENT system. Derm: No signs and/or symptoms reported regarding the dermatologic system. Musculoskeletal: No signs and/or symptoms reported regarding the musculoskeletal system. Vital Signs: 20:46 BP 160 / 91; Pulse 90; Resp 18; Temp 98.4; Pulse Ox 96% on R/A; Weight 117.93 kg; bm8 Height 6 ft. 2 in. ; Pain 0/10; 21:00 BP 152 / 95; Pulse 94; Resp 18; Pulse Ox 96% on R/A; ay 21:30 BP 147 / 96; Pulse 94; Resp 18; Pulse Ox 98% on R/A; ay 22:00 BP 162 / 88; Pulse 92; Resp 18; Pulse Ox 98% on R/A; ay 20:46 Body Mass Index 33.38 (117.93 kg, 187.96 cm) bm8 20:46 Pain Scale: Adult bm8 Iris Coma Score: 20:45 Eye Response: spontaneous(4). Motor Response: obeys commands(6). Verbal Response: sp4 oriented(5). Total: 15. 21:36 Eye Response: spontaneous(4). Motor Response: obeys commands(6). Verbal Response: ay oriented(5). Total: 15. ED Course: 20:36 Patient arrived in ED. jj6 20:40 Ramírez Bronson MD is Attending Physician. sp4 20:45 River Castellanos, RN is Primary Nurse. bm8 20:48 Triage completed. bm8 20:48 Arm band placed on right wrist. bm8 20:51 EKG done, by ED staff, reviewed by Ramírez Bronson MD. bm8 21:12 Yrn Merida, RN is Primary Nurse. ay 21:36 Patient has correct armband on for positive identification. Bed in low position. Call ay light in reach. Side rails up X 1. Adult w/ patient. 22:00 No provider procedures requiring assistance completed. Patient did not have IV access ay during this emergency room visit. 22:02 Provided Education on: Procedure Consent. ay Administered Medications: No medications were administered Medication: 21:36 VIS not applicable for this client. ay Outcome: 21:46 Discharge ordered by . sp4 22:00 Discharged to home ambulatory, ay 22:00 Condition: stable 22:00 Discharge instructions given to patient, Instructed on discharge instructions, follow up and referral plans. 22:03 Patient left the ED. ay Signatures: Jeannine Kapadia [email or web address] Ramírez Bronson MD MD sp4 Rvier Castellanos, RN RN bm8 Yrn Merida, RN RN ay
--- NOTE | 2024-02-21 21:47 | EDPHYS ---
Physician Documentation [facility] Name: Jelani Plaza Age: 23 yrs Sex: Male : 2000 Arrival Date: 02/21/2024 Time: 20:34 Bed 20 Private MD: ED Physician Ramírez Bronson HPI: 02/20 20:40 This 23 yrs old Black Male presents to ER via Unassigned with complaints of Anxiety, sp4 Shortness Of Breath. 02/21 06:51 23-year-old male presents with EMS with complaint of acute panic attack. Patient sp4 presents with complaint of anxiety and shortness of breath.. 06:51 Prior to arrival patient was administered intramuscular Ativan 2 mg by EMS.. sp4 Historical: - Allergies: 02/20 20:48 No Known Allergies; bm8 - Home Meds: 20:48 atenolol 50 mg Oral tablet 1 tabs daily [Active]; bm8 - PMHx: 20:48 Asthma; Hypertensive disorder; bm8 - PSHx: 20:48 Appendectomy; bm8 - Immunization history:: Adult Immunizations up to date. - Infectious Disease History:: Denies. - Social history:: Smoking status: Reported history of juuling and/or vaping. Patient/guardian denies using alcohol, street drugs. - Family history:: not pertinent. ROS: 02/21 06:51 Constitutional: Negative for fever, chills, and weight loss, positive for anxiety, sp4 positive short of breath. All other systems are negative, Exam: 06:51 Constitutional: This is a well developed, well nourished patient who is awake, alert, sp4 and in no acute distress. Head/Face: Normocephalic, atraumatic. Eyes: Pupils equal round and reactive to light, extra-ocular motions intact. Lids and lashes normal. Conjunctiva and sclera are not injected. Cornea within normal limits. Periorbital areas with no swelling, redness, or edema. ENT: Nares patent. No nasal discharge, no septal abnormalities noted. Tympanic membranes are normal and external auditory canals are clear. Oropharynx with no redness, swelling, or masses, exudates, or evidence of obstruction, uvula midline. Mucous membranes moist. Neck: Trachea midline, no thyromegaly or masses palpated, and no cervical lymphadenopathy. Supple, full range of motion without nuchal rigidity, or vertebral point tenderness. Chest/axilla: Normal chest wall appearance and motion. Nontender with no deformity. No lesions are appreciated. Cardiovascular: Regular rate and rhythm with a normal S1 and S2. No gallops, murmurs, or rubs. Normal PMI, no JVD. No pulse deficits. Respiratory: Lungs have equal breath sounds bilaterally, clear to auscultation and percussion. No rales, rhonchi or wheezes noted. No increased work of breathing, no retractions or nasal flaring. Abdomen/GI: Soft, with normal bowel sounds. No distension or tympany. No guarding or rebound. No evidence of tenderness throughout. Back: No spinal tenderness. No costovertebral tenderness. Skin: Warm, dry with normal turgor. Normal color with no rashes, no lesions, and no evidence of cellulitis. MS/ Extremity: Pulses equal, no cyanosis. Neurovascular intact. Full, normal range of motion. Neuro: Awake and alert, GCS 15, oriented to person, place, time, and situation. Cranial nerves II-XII grossly intact. Motor strength 5/5 in all extremities. Sensory grossly intact. Psych: Awake, alert, with orientation to person, place and time. Behavior, mood, and affect are within normal limits 06:51 ECG was reviewed by the Attending Physician. EKG at 2044 normal sinus rhythm rate 91 Vital Signs: 02/20 20:46 BP 160 / 91; Pulse 90; Resp 18; Temp 98.4; Pulse Ox 96% on R/A; Weight 117.93 kg; bm8 Height 6 ft. 2 in. ; Pain 0/10; 21:00 BP 152 / 95; Pulse 94; Resp 18; Pulse Ox 96% on R/A; ay 21:30 BP 147 / 96; Pulse 94; Resp 18; Pulse Ox 98% on R/A; ay 22:00 BP 162 / 88; Pulse 92; Resp 18; Pulse Ox 98% on R/A; ay 20:46 Body Mass Index 33.38 (117.93 kg, 187.96 cm) bm8 20:46 Pain Scale: Adult bm8 Iris Coma Score: 20:45 Eye Response: spontaneous(4). Motor Response: obeys commands(6). Verbal Response: sp4 oriented(5). Total: 15. 21:36 Eye Response: spontaneous(4). Motor Response: obeys commands(6). Verbal Response: ay oriented(5). Total: 15. MDM: 20:41 Medical Screening Exam initiated sp4 02/21 06:53 Differential diagnosis: Anxiety Reaction asthma, Bronchitis Unstable Angina. Data sp4 reviewed: vital signs, nurses notes, EMS record, old medical records, EKG. ED course: Symptoms completely resolved on arrival. Patient stable for discharge home. Prescribed p.o. as needed Valium for anxiety attacks. 02/20 20:40 Order name: EKG; Complete Time: 20:40 sp4 EC/03 20:45 Rate is 91 beats/min. Rhythm is regular, Normal Sinus Rhythm. QRS [place] is Normal. AR sp4 interval is normal. QRS interval is normal. QT interval is normal. No Q waves. T waves are Normal. No ST changes noted. Clinical impression: Normal ECG. Interpreted by me. Reviewed by me. Administered Medications: No medications were administered Disposition: 02/21 06:53 Chart complete. sp4 Disposition Summary: 02/21/24 21:46 Discharge Ordered Notes: Location: Home sp4 Problem: new sp4 Symptoms: have improved sp4 Condition: Stable sp4 Diagnosis - Acute Panic Attack sp4 Followup: sp4 - With: Private Physician - When: 7 - 10 days - Reason: Recheck today's complaints Discharge Instructions: - Discharge Summary Sheet sp4 - Managing Anxiety, Adult sp4 Forms: - Patient Portal Instructions sp4 Prescriptions: - lorazepam 1 mg Oral tablet - take 1 tablet ORAL route daily PRN anxiety; 12 tablet; Refills: 0, Product sp4 Selection Permitted Signatures: Ramírez Bronson MD MD sp4 River Castellanos, RN RN bm8
[2024-02-22 04:50] VITALS: TEMP 98.4
[2024-02-22 04:52] VITALS: O2SAT 98
[2024-02-22 04:53] VITALS: BP 162/88
== END 2024-02-21 22:03 | disposition home or self-care (01) ==
LOC: ER 20:34
DX: F41.0 Panic disorder [episodic paroxysmal anxiety] (principal)
CPT/HCPCS: 99283